=== PATIENT | male | born 1975 | race Caucasian/White ===

== ENCOUNTER 2021-12-08 16:18 | Emergency (ER) | payer BC, OTHER ==
[~2021-12-08] VITALS: Ht 180.3 cm; Wt 129.3 kg
[2021-12-08] MEDS ORDERED: METH-732 PO (17:28)
[2021-12-08] MEDS ORDERED: DICL75TA2 PO (17:28)
--- NOTE | 2021-12-08 17:29 | ED Back Pain ---
General Chief Complaint: Back Problems Stated Complaint: LOW BACK PAIN Nursing Triage Note: PT AMBULATE TO ROOM 06 WITH C/O RIGHT SIDE SCIATIC PAIN. PT REPORTS HX OF SCIATICA. 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 PT STATES THAT HE STARTED HURTING DURING THE DRIVE. PT REPORTS TAKING IBUPROFEN FOR PAIN WITHOUT RELIEF. Source of Information: Patient (LOGAN DOMINIQUE) History of Present Illness Date Seen by Provider: Dec 08, 2021 Time Seen by Provider: 17:23 Initial Comments This is a 46-year-old male with history of chronic intermittent sciatica that presents to the emergency room for right lower back pain. He states that it has been bothering him for about a week now and then he drove up here (10 hours) yesterday which really exacerbated his pain. He states that he tried [id number] medication without relief. He has not had any loss of bowel or bladder function, fever, chills, trauma or other symptoms. Location: Lumbar Spine Timing/Duration: 1 Week Severity: Moderate Pain/Injury Location: Back Radiation: Buttocks (LOGAN DOMINIQUE) Allergies and Home Medications Allergies Coded Allergies: No Known Drug Allergies (Unverified , 12/08/21) Patient Home Medication List Home Medication List Reviewed: Yes (LOGAN DOMINIQUE) Diclofenac Sodium (Diclofenac Sodium) 75 Mg Tablet.dr, 75 MG PO BID Prescribed by: Mic Dominique on 12/08/21 1728 Methocarbamol (Methocarbamol) 750 Mg Tablet, 750 MG PO Q6-8HR Prescribed by: Mic Dominique on 12/08/21 1728 Review of Systems Constitutional: no symptoms reported EENTM: no symptoms reported Respiratory: no symptoms reported Cardiovascular: no symptoms reported Gastrointestinal: no symptoms reported Genitourinary: no symptoms reported Musculoskeletal: back pain Skin: no symptoms reported Psychiatric/Neurological: No Symptoms Reported (LOGAN DOMINIQUE) Past Rmvnqan-Zoqupy-Cxvhbl Hx Patient Social History Tobacco Use?: No Smokeless Tobacco Frequency: Never a User Use of E-Cig and/or Vaping dev: No Use of E-Cig and/or Vaping Ricardo: Never a User Substance use?: No Alcohol Use?: Yes Alcohol Frequency: Rarely Pt feels they are or have been: No (LOGAN DOMINIQUE) Immunizations Up To Date 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 oz. kg; 39.00 BMI Method: General Appearance: No Apparent Distress, WD/WN HEENT: PERRL/EOMI, Normal ENT Inspection Neck: Full Range of Motion Cardiovascular: Regular Rate, Rhythm Respiratory: Chest Non Tender, Lungs Clear Gastrointestinal: Non Tender, Soft Back: Muscle Spasm, Other (Tenderness to palpation over the right lumbar paraspinal musculature) Extremity: Normal Capillary Refill, Normal Inspection, Non Tender, No Calf Tenderness, No Pedal Edema Neurologic/Psychiatric: Alert, Oriented x3, No Motor/Sensory Deficits, Normal Mood/Affect, cashier checker II-XII Norm as Tested Skin: Normal Color, Warm/Dry (LOGAN DOMINIQUE) Progress/Results/Core Measures Results/Orders Vital Signs/I&O 12/08/21 12/08/21 16:40 17:48 Temp 37.0 37.0 Pulse 86 73 Resp 17 17 B/P (MAP) 149/97 (114) 122/74 Pulse Ox 97 O2 Delivery Room Air Room Air (MACKENZIE HERR MD) Blood Pressure Mean: 114 Departure Communication (Admissions) Patient is afebrile, nontoxic and in no distress. Treated for his acute sciatic pain/lumbar strain. No evidence or suspicion of cord compression, discitis, epidural abscess or other emergent conditions. Patient will return if worse. (LOGAN DOMINIQUE) Impression Primary Impression: Lumbar radiculopathy Additional Impression: Lumbar sprain Disposition: 01 HOME, SELF-CARE Condition: Stable Departure-Patient Inst. Decision time for Depature: 17:27 (LOGAN DOMINIQUE) Referrals: NO,LOCAL PHYSICIAN (PCP/Family) Primary Care Physician Patient Instructions: Back Muscle Strain (DC), Radiculopathy Scripts Methocarbamol (Methocarbamol) 750 Mg Tablet 750 MG PO Q6-8HR for Back Pain, #20 TAB Prov: LOGAN DOMINIQUE 12/08/21 Diclofenac Sodium (Diclofenac Sodium) 75 Mg Tablet.dr 75 MG PO BID for 7 Days, #14 TAB Prov: LOGAN DOMINIQUE 12/08/21 ATTENDING PHYSICIAN NOTE: I was physically present as attending physician in the emergency department during the care of this patient, but I was not directly involved in the decision making or delivery of care for this patient. (MACKENZIE HERR MD) LOGAN DOMINIQUE Dec 08, 2021 17:29 MACKENZIE HERR MD Dec 10, 2021 01:07
[2021-12-08] MEDS ORDERED: ORPHENADRINE 60 MG/2 ML (NORFLEX) AMP (ED ONLY) IM ONE (17:30)
[2021-12-08 17:48] VITALS: BP 122/74
== END 2021-12-08 17:48 | disposition home or self-care (01) ==
LOC: ER 16:21
DX: S33.5XXA Sprain of ligaments of lumbar spine, initial encounter (principal); M54.16 Radiculopathy, lumbar region; X58.XXXA Exposure to other specified factors, initial encounter; Y92.59 Other trade areas as the place of occurrence of the external cause; Y99.0 Civilian activity done for income or pay
CPT/HCPCS: 99284